=== PATIENT | female | born 1950 | race Caucasian/White ===

== ENCOUNTER 2017-12-13 04:20 | Day surgery (SDC) | payer OTHER ==
[~2017-12-13 04:20] MED LIST: CALTRATE 600 +1 EACH PO; CIPRO500 MG PO; FLONASE16 GM; HYZAAR 100-121 UDTAB PO; LEVO-T75 MCG PO; LISINOPRIL40 MG PO; NORVASC2.5 M1 PO; OMEPRAZOLE20 MG PO; SINGULAIR 10MG10 MG PO; TRAM1TAB98 PO; VITAMIN D3400 UNIT PO; ZOCOR20 MG PO
[2017-12-13] MEDS ORDERED: Septra Ds Tablet PO (10:16)
[2017-12-13] MEDS ORDERED: OXYC1TAB9 PO (10:16)
== END 2017-12-13 12:40 | disposition home or self-care (01) ==
LOC: CIR.AMB 04:20
DX: S46.811A Strain of other muscles, fascia and tendons at shoulder and upper arm level, right arm, initial encounter (principal); M75.41 Impingement syndrome of right shoulder